=== PATIENT | male | born 1955 | race Caucasian/White ===

== ENCOUNTER 2019-04-01 08:57 | Inpatient (IN) ==
[~2019-04-01 08:57] MED LIST: LIDOCAINE W/ SODIUM BICARB 0.5 ML SYR ONE; LIDOCAINE W/ SODIUM BICARB 0.5 ML SYR SUBD ONE; Lactated Ringers 1,000 ML PRIMARY IV ONE; Nasal Sanitizer POPSWAB ampule 3 AMP (Nozin) PREOP DOSE ENOS SCH; Vancomycin 1 gm (Premix) 1 GM/200 ML PIGGYBACK IV ONE; Vancomycin 1.5 gm (Premix) 1.5 GM/300 ML PIGGYBACK IV ONE; Vancomycin-PHA to Dose IV PRN; ceFAZolin Inj 2gm (Premix) 2 GM/50 ML BAG IV ONE
[2019-04-01] MEDS ORDERED: Vancomycin 1.5 gm (Premix) 1.5 GM/300 ML PIGGYBACK IV ONE (09:15)
[2019-04-01 10:11] LABS: HEMOGLOBIN A1C 6.44 % (4.2-6.0)
[2019-04-01 11:16] LABS: BILIRUBIN,URINE NEGATIVE (NEG); CLARITY,URINE CLEAR (CLEAR); COLOR,URINE YELLOW (Y); GLUCOSE, URINE (UA) NEGATIVE (NEG); OCCULT BLOOD,URINE NEGATIVE (NEG); PROTEIN,URINE NEGATIVE (NEG); UROBILINOGEN,URINE 0.2 EU/dL (0.2)
[2019-04-01 11:35] LABS: URINE SAMPLE TYPE CLEAN CATCH URINE
[2019-04-01] MEDS ORDERED: fentaNYL Inj 250 MCG/5 ML VIAL ONE ×2 (13:26→16:51)
[2019-04-01] MEDS ORDERED: ONDANSETRON 4 MG/2 ML VIAL ONE (13:27)
[2019-04-01] MEDS ORDERED: PROPOFOL 10 MG/1 ML (200 MG/20 ML) VIAL IV ONE (13:27)
[2019-04-01] MEDS ORDERED: LIDOCAINE MPF 2% - 5 ML (20 MG/1 ML) ONE (13:27)
[2019-04-01] MEDS ORDERED: ROCURONIUM 10 MG/1 ML - 5 ML VIAL IVP ONE (13:27)
[2019-04-01] MEDS ORDERED: DEXAMETHASONE PF 10 MG/1 ML VIAL ONE (13:27)
[2019-04-01] MEDS ORDERED: KETOROLAC 30 MG/1 ML VIAL ONE (13:27)
[2019-04-01] MEDS ORDERED: Sodium Chloride 0.9% vial 20 ML ONE (13:31)
[2019-04-01] MEDS ORDERED: BACITRACIN 50,000 UNIT VIAL IRRIG ONE ×2 (13:31→18:55)
[2019-04-01] MEDS ORDERED: BUPIVACAINE 0.25% W/ EPI - 10 ML VIAL ONE (13:31)
[2019-04-01] MEDS ORDERED: LIDOCAINE HCL 2 % 10 ML JELLY URO-JECT TOPICAL ONE (13:47)
[2019-04-01] MEDS ORDERED: SUGAMMADEX SODIUM 200 MG/2 ML VIAL IV ONE (14:31)
[2019-04-01] MEDS ORDERED: BUPIVACAINE 0.5% W/ EPI - 10 ML VIAL ONE (14:31)
[2019-04-01] MEDS ORDERED: GLYCOPYRROLATE 0.2 MG/1 ML VIAL ONE (14:45)
[2019-04-01] MEDS ORDERED: LIDOCAINE HCL 2 % 10 ML JELLY URO-JECT TOPICAL PRN (16:09)
[2019-04-01] MEDS ORDERED: Hetastarch 6% + NS 500 ML IV ONE (18:00)
[2019-04-01] MEDS ORDERED: Sodium Chloride 0.9% vial 10 ML ONE (18:55)
[2019-04-01] MEDS ORDERED: FUROSEMIDE 10 MG/1 ML - 4 ML ONE (19:48)
[2019-04-01] MEDS ORDERED: fentaNYL Inj 100 MCG/2 ML VIAL IVP PRN (20:25)
[2019-04-01] MEDS ORDERED: MORPHINE SULFATE 2 MG/1 ML IVP PRN ×2 (20:25→21:45)
[2019-04-01] MEDS ORDERED: ONDANSETRON 4 MG/2 ML VIAL IVP PRN ×2 (20:25→21:45)
[2019-04-01] MEDS ORDERED: LIDOCAINE W/ SODIUM BICARB 0.5 ML SYR SUBD PRN (20:25)
[2019-04-01] MEDS ORDERED: HYDROmorphone 2 MG/1 ML IVP PRN (20:25)
[2019-04-01] MEDS ORDERED: Meperidine Inj 50 MG/ML CARPUJECT IVP PRN (20:25)
[2019-04-01] MEDS ORDERED: Lactated Ringers 1,000 ML PRIMARY IV SCH (20:30)
[2019-04-01] MEDS ORDERED: HYDROmorphone 2 MG/1 ML ONE (20:50)
[2019-04-01] MEDS ORDERED: DIAZEPAM 5 MG TABLET PO PRN (21:45)
[2019-04-01] MEDS ORDERED: HYDROcodone-APAP 7.5 MG-325 MG TABLET PO PRN (21:45)
[2019-04-01] MEDS ORDERED: BISACODYL 5 MG TABLET PO PRN (21:45)
[2019-04-01] MEDS ORDERED: Ondansetron ODT Tab 4 MG TAB PO PRN (21:45)
[2019-04-01] MEDS ORDERED: Vancomycin-PHA to Dose IV PRN (21:45)
[2019-04-01] MEDS ORDERED: DIAZEPAM 10 MG/2 ML (5 MG/1 ML) CARPUJECT IVP PRN (21:45)
[2019-04-01] MEDS ORDERED: MAGNESIUM CITRATE 296 ML SOLUTION PO PRN (21:45)
[2019-04-01] MEDS ORDERED: Prochlorperazine Edisylate Inj 10mg/2ml vial IVP PRN (21:45)
[2019-04-01] MEDS ORDERED: MAGNESIUM 400 MG/5 ML - 30 ML (MILK OF MAGNESIA) PO PRN (21:45)
[2019-04-01] MEDS ORDERED: Fleet Enema 133ml RECTAL PRN (21:45)
[2019-04-01] MEDS ORDERED: HYDROcodone-APAP 5 MG -325 MG TABLET PO PRN (21:45)
[2019-04-01] MEDS ORDERED: DOCUSATE 100 MG CAPSULE PO PRN (21:45)
[2019-04-01] MEDS ORDERED: PROMETHAZINE 25 MG/1 ML VIAL IM PRN (21:45)
[2019-04-01] MEDS ORDERED: ceFAZolin Inj 2gm (Premix) 2 GM/50 ML BAG IV SCH (22:00)
[2019-04-01] MEDS ORDERED: Influenza 19-20 Vaccine (6mo+) 60 MCG/0.5 ML SYRINGE IM ONE (22:19)
[2019-04-02] MEDS: HYDROcodone-APAP 10 MG-325 MG TABLET PO PRN ×2 (00:09→04:19)
[2019-04-02 05:37] LABS: Hemoglobin [HGB] 15.9 g/dL (14.0-18.0); RED BLOOD COUNT 4.94 10^6/uL (4.70-6.10)
[2019-04-02 05:38] LABS: BASOPHILS # (AUTO) 0 10*3/UL; BASOPHILS % (AUTO) 0 % (0-1); EOSINOPHILS # (AUTO) 0 10*3/UL; EOSINOPHILS % (AUTO) 0 % (0-8); Hematocrit [HCT] 46.2 % (42.0-52.0); LYMPHOCYTES # (AUTO) 1.36 10*3/uL; MEAN CORPUSCULAR HGB CONC 34.4 g/dL (33-37); MEAN CORPUSCULAR VOLUME 93.5 FL (80-90); MEAN PLATELET VOLUME 10.3 FL (7.4-12.2); MONOCYTES # (AUTO) 0.07 10*3/UL (0.3-0.8); MONOCYTES % (AUTO) 0.7 % (5-15); NEUTROPHILS % (AUTO) 84.9 % (50-80); PLATELET MORPHOLOGY COMMENT NORMAL MORPHOLOGY (NORM); RBC MORPHOLOGY COMMENT NORMAL MORPHOLOGY (NORM); WBC MORPHOLOGY COMMENT NORMAL MORPHOLOGY (NORM)
[2019-04-02 05:44] LABS: BLOOD UREA NITROGEN 17 mg/dL (7-22); BUN/CREATININE RATIO 18.88 (6-20)
[2019-04-02] MEDS ORDERED: PANTOPRAZOLE 40 MG TABLET PO SCH (07:00)
[2019-04-02] MEDS ORDERED: Methimazole Tab 5 MG TAB PO SCH (09:00)
[2019-04-02] MEDS ORDERED: AmLODIPine Tab 5 MG TABLET PO SCH (09:00)
[2019-04-02] MEDS ORDERED: METOPROLOL SUCCINATE 100 MG SR 24H TABLET PO SCH (09:00)
[2019-04-02] MEDS ORDERED: RAMIPRIL 10 MG CAPSULE PO SCH (09:00)
[2019-04-02 11:01] VITALS: BP 119/71; RESP 17; TEMP 97.4; O2SAT 91
== END 2019-04-02 13:53 | disposition home or self-care (01) | DRG 472 ==
LOC: OPS 08:57 → MED/SURG 21:34
PROVIDERS: ADMIT Neurological Surgery; ATTEND Neurological Surgery